=== PATIENT | male | born 1970 | race Caucasian/White ===

== ENCOUNTER 2019-03-03 17:54 | Inpatient (IN) ==
[2019-03-03 18:42] LABS: BASO# 0.11 X1000 (0.0-0.2); EOS# 0.21 X1000 (0.0-0.7); EOS% 3.8 % (0.0-10.0); HEMATOCRIT 46.4 % (42.0-52.0); HEMOGLOBIN 15.8 g/dL (14.0-18.0); LYMPH% 34.7 % (20.5-51.1); MCH 31.2 PG (27-31); MCHC 34.1 g/dL (33-37); MCV 91.7 FL (81-99); MONO# 0.65 X1000 (0.11-0.59); MONO% 11.9 % (1.7-9.3); MPV 10.8 FL (7.4-10.4); NEUT# 2.61 X1000 (1.4-6.5); NEUT% 47.6 % (42.2-75.2); PLT 270 X1000 (130-400); RBC 5.06 XMIL (4.7-6.1); RDW 12.7 % (11.5-14.5); WBC 5.48 X1000 (4.8-10.8)
--- NOTE | 2019-03-03 18:51 | Diag Imaging Result Doc PS360 ---
EXAM: CHEST-PORTABLE 03/03/2019 HISTORY: stroke like symptoms TECHNIQUE: AP portable at 1839 COMMENT: There are calcified granulomatous nodes in the left hilum. There is no evidence of acute cardiac or pulmonary disease. The inspiration is much better than on 04/30/2015. IMPRESSION: No evidence of acute disease. Electronically signed by Yinka Rivera 03/03/2019 6:49 PM
--- NOTE | 2019-03-03 18:56 | Diag Imaging Result Doc PS360 ---
EXAM: CT HEAD W/O CONTRAST 03/03/2019 HISTORY: stroke like symptoms TECHNIQUE: This exam was performed using automated exposure control, adjustment of mA or kV according to patient size, and/or use of iterative reconstruction technique. COMMENT: There is no evidence of mass effect, bleed, or abnormal extra-axial fluid collection. Compared to 04/30/2015 there has been no significant change in the appearance of the brain. The calvarium is intact. There is a mucous retention cyst in the right maxillary sinus. There is no evidence of acute paranasal sinus disease. IMPRESSION: No evidence of acute disease. Electronically signed by Yinka Rivera 03/03/2019 6:54 PM
[2019-03-03 19:15] LABS: INR 0.9; PROTIME 12.9 Seconds (11.0-16.0); PTT 25.8 Seconds (22.3-41.8)
[2019-03-03 19:16] LABS: AGAP 12; ALBUMIN 4.9 g/dL (3.5-5.0); ALKALINE PHOSPHATASE 83 U/L (32-122); BUN 19 mg/dL (8-22); CALCIUM 9.3 mg/dL (8.8-10.2); CHLORIDE 101 mmol/L (98-107); COSMO 284; CREATININE 0.9 mg/dL (0.7-1.2); ESTIMATED GFR > 60; GLUCOSE 101 mg/dL (70-104); GOT 19 U/L (10-34); GPT 33 U/L (10-44); SODIUM 141 mmol/L (136-145); TCO2 28 mmol/L (25-35); TOTAL BILIRUBIN 0.47 mg/dL (0.20-1.00); TOTAL PROTEIN 7.4 g/dL (6.3-8.3)
[2019-03-03] MEDS ORDERED: ASPIRIN PO ONE (19:19)
[2019-03-03 19:52] LABS: URINE SOURCE CLEAN CATCH
[2019-03-03 19:56] LABS: BILIRUBIN URINE NEGATIVE (NEGATIVE); BLOOD URINE NEGATIVE (NEGATIVE); COLOR YELLOW; GLUCOSE URINE NEGATIVE (NEGATIVE); KETONE URINE NEGATIVE (NEGATIVE); LEUKOCYTES URINE SMALL (NEGATIVE); NITRITE URINE NEGATIVE (NEGATIVE); PH URINE 5.5; PROTEIN URINE NEGATIVE (NEGATIVE); TURBIDITY URINE CLEAR (CLEAR); UROBILINOGEN URINE NORMAL (NORMAL)
[2019-03-03 19:58] LABS: URINE WBC <10 /HPF (<10)
[2019-03-03 19:59] LABS: UR EPITHELIAL CELLS <10 /HPF (<10); URINE BACTERIA NEGATIVE /HPF; URINE RBC <10 /HPF (<10)
--- NOTE | 2019-03-03 20:44 | PROVIDER DOCUMENTATION ---
This chart was entered by Shawna Hoskins Scribe, acting as scribe for Zunilda Fernandez MD. HPI-Neurological Disorder - General Chief Complaint: Numbness Stated Complaint: R-SIDE NUMBNESS CANT FOCUS W/HAND-LEG Time Seen by Provider: 03/03/19 18:25 Source: patient Allergies/Adverse Reactions: Patient Allergies Allergy/AdvReac Type Severity Reaction Status Date / Time No Known Allergies Allergy Verified 04/30/15 19:38 Home Medications: Home Medication List Medication Instructions Recorded Confirmed Last Taken Type Allopurinol [Zyloprim] 300 mg PO DAILY 08/31/13 04/30/15 04/30/15 09:00 History Aspirin 81 mg PO DAILY 08/31/13 04/30/15 04/30/15 09:00 History Lisinopril/Hydrochlorothiazide 1 each PO QAM 08/31/13 04/30/15 04/30/15 09:00 History [Lisinopril-Hctz 20-12.5 mg Tab] Metformin [Glucophage] 500 mg PO DAILY 08/31/13 04/30/15 04/30/15 09:00 History Multivits-Minerals/FA/Lycopene 1 each PO DAILY 08/31/13 04/30/15 04/30/15 09:00 History [One Daily For Men Tablet] [place]-3 Fatty Acids/Fish Oil [Fish 1 each PO DAILY 08/31/13 04/30/15 04/30/15 09:00 History Oil 1,000 mg Softgel] Omeprazole [Prilosec] 40 mg PO DAILY@0700 08/31/13 04/30/15 04/30/15 09:00 History Ibuprofen [Motrin] 800 mg PO Q8H PRN PRN #20 tablet 04/30/15 Unknown Rx Labetalol HCl 200 mg PO DAILY 04/30/15 04/30/15 04/30/15 09:00 History Ondansetron HCl [Zofran] 1 - 2 tab PO Q6H PRN PRN #10 tablet 04/30/15 Unknown Rx - History of Present Illness-Neuro Nature of Presenting Problem: pt is a 48 yr old male presenting with complaint of right side numbness, tingling and weakness, pt also reports slurred speech, confusion and difficulty forming words. pt reports onset 1600 while working, resolved approx 1 hr later, pt does admit numbness remains in distal finger tips. pt reports hx of similar 1 week ago but affected left side and resolved approx 1.5hr after onset. pt denies any chest pain or shortness of breath, admits throbbing occipital headache Headache Location: reports: occipital Severity: reports: severe Onset/Duration: reports: abrupt (1629) Timing: reports: still present Context: reports: impaired speech, facial droop, other (right side weakness/numbness/tingling) Approximate time patient was last seen normal?: 16:30 Character of Altered Mental Status: reports: disoriented, confused Any recent trauma/injury?: reports: none Character of Deficits: reports: new weakness, altered sensation, impaired speech New weakness or altered sensation location:: reports: RUE, RLE, right facial Cognitive Baseline: alert, oriented x3 Gait Baseline: walks without assistance Associated Symptoms: reports: dizziness, confusion, fatigue, nausea, numbness in legs/feet, slurred speech, tingling in legs/feet, weakness Similar Symptoms Previously?: Yes (similar episode 1 week prior) Recently seen or treated by another doctor?: No Review of Systems - Adult - REVIEW OF SYSTEMS - ADULT Constitutional: reports: fatique. denies: chills, fever Eyes: denies: blurred vision, double vision Ears, Nose, Mouth & Throat: reports: no symptoms reported Cardiovascular: denies: chest pain, palpitations, syncope Respiratory: denies: cough, shortness of breath Gastrointestinal: reports: nausea. denies: abdominal pain, vomiting Genitourinary: reports: no symptoms reported Musculoskeletal: reports: muscle weakness. denies: muscle aches Integumentary: reports: no symptoms reported Neurological: reports: dizziness/vertigo, headache/migraines, numbness, slurred speech. denies: seizure, syncope Psychiatric: reports: no symptoms reported Endocrine: reports: no symptoms reported Hematologic/Lymphatic: reports: no symptoms reported Allergic/Immunologic: reports: no symptoms reported All Other Systems: Reviewed and Negative Past History - Adult - PAST MEDICAL HISTORY-ADULT Review of Records: reports: Old Records Reviewed, Nursing Assessment Review, Medications Reviewed, Social history reviewed & non-contributory. Major Childhood Illnesses: reports: denies history Cardiovascular: reports: HTN, hyperlipidemia Respiratory: reports: denies history Gastrointestinal: reports: denies history Obstetrical/Gynecological: reports: denies history Genitourinary: reports: kidney stones Musculoskeletal: reports: other (Gout ) Neurological: reports: denies history Endocrine/Immune: reports: Diabetes Other Conditions: reports: denies history - PRIOR SURGERIES/PROCEDURES Surgical/Procedure History: reports: other (lithotripsy) - IMMUNIZATION STATUS Childhood Immunizations: See Nurse Assessment Flu Vaccine: See Nurse Assessment - FAMILY HISTORY Family History: reviewed, not pertinent - SOCIAL HISTORY Smoking: denies Substance Use: denies Living Situation: family Physical Exam- Neurological - Physical Exam-Neuro Initial Vital Signs Reviewed: Yes General Appearance: appears well, alert, no apparent distress Eye Exam: bilateral eye: normal inspection, PERRL HENMT: normocephalic/atraumatic, moist mucous membranes, normal ENT inspection Head Injury: no evidence of injury Neck: non-tender, full range of motion, supple, normal inspection Respiratory: chest non-tender, lungs clear, normal breath sounds Cardiovascular: normal peripheral pulses, regular rate, rhythm, no edema Abdominal Exam: normal bowel sounds, non tender, soft Lymphatic: no adenopathy Peripheral Pulses: radial (R): 2+, radial (L): 2+ Extremity: normal range of motion, non-tender, 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, 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 Exam: normal hearing, normal speech, PERRL Coordination/Gait: normal finger to nose, normal gait Motor/Sensory: no motor deficit, no sensory deficit, no pronator drift Neurologic: grossly normal, no motor/sensory deficits Integumentary: normal color, normal turgor, warm/dry Psych/Mental Status: normal mood/affect - Glascow Coma Scale Best Eye Response: (4) open spontaneously Best Verbal Response: (5) oriented Best Motor Response: (6) obeys commands Total Glascow Score: 15 Progress - PLAN OF CARE/RESULTS Progress/Plan/Lab Results: Vital Signs - 8 hr 03/03/19 17:58 03/03/19 19:02 03/03/19 19:05 Temperature 97.7 F Pulse Rate 77 85 Respiratory Rate 18 24 Blood Pressure 148/103 131/95 O2 Sat by Pulse Oximetry 97 95 95 03/03/19 19:39 03/03/19 20:00 Temperature Pulse Rate 79 74 Respiratory Rate 18 15 Blood Pressure 149/109 O2 Sat by Pulse Oximetry 98 96 Laboratory Results - last 24 hr 0503/03/19 03/03/19 18:24 18:24 18:24 WBC 5.48 RBC 5.06 Hgb 15.8 Hct 46.4 MCV 91.7 MCH 31.2 H MCHC 34.1 RDW Std Deviation 12.7 Plt Count 270 MPV 10.8 H Immature Gran % (Auto) 0.0 Neut % (Auto) 47.6 Lymph % (Auto) 34.7 [place] % (Auto) 11.9 H Eos % (Auto) 3.8 Baso % (Auto) 2.0 H Immature Gran # (Auto) 0.00 Neut # (Auto) 2.61 Lymph # (Auto) 1.90 [place] # (Auto) 0.65 H Eos # (Auto) 0.21 Baso # (Auto) 0.11 PT 12.9 INR 0.90 PTT (Actin FS) 25.8 Sodium 141 Potassium 4.0 Chloride 101 Carbon Dioxide 28 Anion Gap 12 BUN 19 Creatinine 0.9 Estimated GFR/1.73 m2 > 60 BUN/Creatinine Ratio 21 Glucose 101 POC Glucose Calculated Osmolality 284 Calcium 9.3 Total Bilirubin 0.47 AST 19 ALT 33 Alkaline Phosphatase 83 Troponin T Total Protein 7.4 Albumin 4.9 Globulin 2.5 Albumin/Globulin Ratio 2.0 Urine Source Urine Color Urine Turbidity Urine pH Ur Specific [place] Urine Protein Ur Glucose (Stick) Ur Ketones (Stick) Urine Blood Urine Nitrite Urine Bilirubin Urobilinogen Dipstick Urine Leukocytes Urine WBC (Auto) Urine RBC (Auto) U Epithel Cells (Auto) Urine Bacteria (Auto) 03/03/19 03/03/19 03/03/19 18:24 19:06 19:30 WBC RBC Hgb Hct MCV MCH MCHC RDW Std Deviation Plt Count MPV Immature Gran % (Auto) Neut % (Auto) Lymph % (Auto) [place] % (Auto) Eos % (Auto) Baso % (Auto) Immature Gran # (Auto) Neut # (Auto) Lymph # (Auto) [place] # (Auto) Eos # (Auto) Baso # (Auto) PT INR PTT (Actin FS) Sodium Potassium Chloride Carbon Dioxide Anion Gap BUN Creatinine Estimated GFR/1.73 m2 BUN/Creatinine Ratio Glucose POC Glucose 105 H Calculated Osmolality Calcium Total Bilirubin AST ALT Alkaline Phosphatase Troponin T < 0.010 Total Protein Albumin Globulin Albumin/Globulin Ratio Urine Source CLEAN CATCH Urine Color YELLOW Urine Turbidity CLEAR Urine pH 5.5 Ur Specific [place] 1.010 Urine Protein NEGATIVE Ur Glucose (Stick) NEGATIVE Ur Ketones (Stick) NEGATIVE Urine Blood NEGATIVE Urine Nitrite NEGATIVE Urine Bilirubin NEGATIVE Urobilinogen Dipstick NORMAL Urine Leukocytes SMALL A Urine WBC (Auto) <10 Urine RBC (Auto) <10 U Epithel Cells (Auto) <10 Urine Bacteria (Auto) NEGATIVE Orders Category Date Time Status Cardiac Monitoring DIRECTED Care 03/03/19 18:11 Active Finger Stick Blood Sugar (ED) DIRECTED Care 03/03/19 18:11 Active Misc. NRSG Communication Order DIRECTED Care 03/03/19 18:11 Active Saline Loc NOW Care 03/03/19 18:11 Active CHEST-PORTABLE [RAD] Stat Exams 03/03/19 18:[address] HEAD W/O CONTRAST [CT] Stat Exams 03/03/19 18:11 Completed CBC WITH ELECTRONIC DIFF [HEME] Stat Lab 03/03/19 18:24 Completed COMPREHENSIVE METABOLIC PANEL [CHEM] Stat Lab 03/03/19 18:24 Completed PROTIME WITH INR [COAG] Stat Lab 03/03/19 18:24 Completed PTT [COAG] Stat Lab 03/03/19 18:24 Completed TROPONIN T Stat Lab 03/03/19 18:24 Completed URINALYSIS W/POSS RFLX CULT [URINALYSIS] Stat Lab 03/03/19 19:30 Completed URINE CULTURE [RM] Routine Lab 03/03/19 20:01 Received Aspirin Med 03/03/19 19:19 Discontinued 325 mg PO NOW ONE EKG [EKG] Stat Ther 03/03/19 18:11 Ordered Result Diagrams: 03/03/19 18:24 03/03/19 18:24 - EKG 1 Time of EKG reading by physician:: 19:17 EKG Read and Signed by:: Zunilda Fernandez EKG Interpretation (*Must complete 3 of following elements*): Abnormal Rate: 74 Rhythm: nsr [place]: normal QRS: LVH (may be normal variant) [place] Interval: normal ST Wave: normal - CONSULTS/PCP/HOSPITALIST Notification #1 *Consult/PCP/Hospitalist*: Dr. Payne Time Discussed: 20:43 (CVA r/o) Consult Disposition: Admit Departure - Departure Date of Disposition Decision: 03/03/19 Time of Disposition Decision: 20:43 DIAGNOSIS: CVA (cerebral vascular accident) Disposition: ADMITTED INPATIENT 09 Certified Medical Emergency: Emergent Condition: Stable Referrals and Follow-Ups: Venessa Ruffin CRNP [Primary Care Provider] - Call for Appoint. 1-2days - Critical Care Note This patient required my direct & personal management of CC.: No Attestation - Physician/ DEVEN Attestation The physician spent face to face time with patient:: Yes Advanced Practice Provider documentation review:: Supervising physician onsite and consulted in the evaluation and care of this patient. The physician did have a face to face encounter with the patient. - NIH Stroke Scale NIH Type: Initial Evaluation Level of Consciousness: 0-Alert LOC Questions (ask month and age): 0-Answers Both Correctly LOC Commands (ask to open & close eyes;make a fist, let go): 0-Obeys Both Correctly Best Gaze (horizontal eye movement): 0-Normal Visual (use finger movement, counting or visual threat): 0-No Visual Loss Facial Palsy (show teeth or raise eyebrows & close eyes tght: 0-Symmetrical Movement Motor Function-left arm: 0-Normal Motor Function-right arm: 0-Normal Motor Function-left le-Normal Motor Function-right le-Normal Limb Ataxia(moxemb-ouaw-rbtcoe, or heel to lopez): 0-No Ataxia Sensory(pin prick to face,arms,trunk,legs-compare side/side): 0-No Ataxia Best Language(name item/read sentence.Ex-Down to Earth): 0-No Aphasia Dysarthria(Pt read words or say words Ex.Mama,Tip-Top,Thanks: 0-Normal Articulation Extinction and Inattention: 0-Normal Modified [place] Score Criteria: 0-no symptoms This chart was documented by the indicated scribe, (Shawna Hoskins, Scribe) and accurately reflects the services I performed and decisions made by me, Zunilda Fernandez MD, as attested by the provider's signature.
[2019-03-03] MEDS ORDERED: TYLENOL PO PRN (21:03)
[2019-03-03] MEDS ORDERED: ZOFRAN IV PRN (21:03)
[2019-03-03] MEDS ORDERED: NS 1,000 ML IV SCH (21:15)
[2019-03-03] MEDS ORDERED: LOVENOX SUBQ SCH (21:15)
[2019-03-03 22:47] LABS: HEMOGLOBIN A1C 5.5 % (4.8-6.0)
--- NOTE | 2019-03-03 23:17 | HISTORY AND PHYSICAL ---
CHIEF COMPLAINT: Stroke-like symptoms. HISTORY OF PRESENT ILLNESS: Mr. Velez is a 48-year-old male. He is lying in the ER stretcher. He is alert and oriented times 3. Denies any deficits at this time. They have all resolved on arrival. Mr. Velez was at work. 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 He felt as if his face was numb and tingling and he had a 9/10 occipital headache that was pounding which started after the numbness had onset. He stated that he had a similar episode a week ago that lasted about an hour and a half but he did not seek medical attention. He also stated that he has had migraines in the past with treatment from someone in [place]. However, he no longer takes migraine treatment. He has other medical history that includes diabetes mellitus type 2. However, he no longer takes metformin. Apparently, his hemoglobin A1c was within limits and his doctor had taken him off of this. Also has hypertension, hyperlipidemia and gout. CT of his head was normal. He will be admitted for further evaluation and treatment. PAST MEDICAL HISTORY: See HPI. PREVIOUS SURGICAL HISTORY: Lymph node biopsy. Otherwise denies. FAMILY HISTORY: Mother had hypertension and migraines. Father had coronary artery disease, from myocardial infarction at age 44. SOCIAL HISTORY: Lives with his . 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 He does drink alcohol on Thursday night, usually 6-8 mixed drinks. Denies tobacco or illicit drugs. ALLERGIES: No known drug allergies. HOME MEDICATIONS: Lisinopril/hydrochlorothiazide 20/12.5 one p.o. daily, Lasix 20 mg p.r.n., aspirin 81 mg p.o. daily, allopurinol 300 mg p.o. daily, omeprazole 20 mg p.o. daily, multivitamin daily, fish oil daily. REVIEW OF SYSTEMS: Fourteen point review of systems conducted with the patient. He had complaint of slurring of speech, feeling as if his vision was in a tunnel during the episode. Also has intermittent swelling of his feet. Other pertinent positives listed above in the HPI. All other systems reviewed and found to be negative. PHYSICAL EXAMINATION: VITAL SIGNS: Temperature 97.7, pulse 73, respirations 16, blood pressure 122/96, oxygen saturation 95% on room air. GENERAL: Pleasant 48-year-old male, answers all questions appropriately, is alert and oriented times 3. Family at bedside very attentive. HEENT: Head is atraumatic, normocephalic. Pupils equal, round, reactive to light. Extraocular eye movement is intact. Sclerae are anicteric. Conjunctiva is pink. Oral mucosa is moist. NECK: Supple. No JVD. No thyromegaly. Trachea is midline. No cervical lymphadenopathy. CARDIAC: S1, S2 appreciated. No murmurs, gallops, rubs. LUNGS: Clear to auscultation bilaterally. No rhonchi, wheeze, rales. Symmetric rise and fall with respirations. ABDOMEN: Soft, nondistended, nontender. Bowel sounds present all 4 quadrants, normoactive. No pulsatile mass. No organomegaly. EXTREMITIES: No clubbing, cyanosis, or edema. Two-plus pedal pulses bilaterally. GENITOURINARY: No bladder distention. Patient voids. Otherwise deferred. NEUROLOGICAL: Alert and oriented times 3. Cranial nerves 2 through 12 grossly intact. Normal gait. No focal or motor deficits appreciated. DIAGNOSTIC DATA: CT of the head: No acute intracranial process. Chest x-ray: No evidence of acute disease. LABORATORY DATA: CBC within normal limits. Coagulation studies within normal limits. Chemistry panel within normal limits other than a glucose of 105. Urine unremarkable. ASSESSMENT AND PLAN: 1. Complex migraine with differentials of transient ischemic attack versus cerebrovascular accident. We will order an MRI with and without contrast, carotid ultrasound and echocardiogram in a.m. Patient no longer has complaint. We will give Tylenol 650 as needed for pain. Continue aspirin 81 mg p.o. daily. 2. Hypertension. We will not treat tonight. We will continue patient's Prinzide tomorrow. We will allow for permissive hypertension overnight. 3. Gout. We will continue allopurinol. 4. Hyperlipidemia. Patient does not appear to be on a statin. We will start atorvastatin 40. Check a direct lipid profile. Further recommendations per patient's clinical course. Dictated by KAVON Dunn for Rick Payne MD cc: KAVON Dunn MD
--- NOTE | 2019-03-04 03:35 | HISTORY AND PHYSICAL ---
ADDENDUM: Patient seen and examined by myself. Full note dictated and discussed with nurse practitioner. Patient presented to the ER complaining of numbness/tingling on his right side arm and leg as well as some speech difficulty. Interestingly, patient notes that he had some similar symptoms last week, but it was on the left side. He initially did not recall having history of migraines, but then remembers being on medications for migraines in the past. We will admit the patient to the hospital. We will workup for TIA, but this certainly sounds more of a complicated migraine history. We will continue to follow. Further orders as needed. cc: Rick Payne MD
[2019-03-04] MEDS: LIPITOR PO SCH ×2 (03:43→11:02)
[2019-03-04] MEDS ORDERED: PRILOSEC PO SCH (07:00)
--- NOTE | 2019-03-04 07:15 | EKG Report ---
Test Performed on : 03/04/2019 06:51:55 AM Test Reason : chest pain Blood Pressure : / mmHG Vent. Rate : 066 BPM Atrial Rate : 066 BPM P-R Int : 226 ms QRS Dur : 086 ms QT Int : 400 ms P-R-T Axes : 021 009 028 degrees QTc Int : 419 ms Sinus rhythm. with 1st degree AV block. Otherwise normal ECG When compared with ECG of 03-MAR-2019 19:17, (Unconfirmed) No significant change was found Confirmed by Cameron HODGE, Bryson Sebastian ([id number]) on 03/08/2019 12:41:06 PM
--- NOTE | 2019-03-04 07:17 | EKG Report ---
Test Performed on : 03/03/2019 7:17:59 PM Test Reason : Stroke like symptoms Blood Pressure : / mmHG Vent. Rate : 074 BPM Atrial Rate : 074 BPM P-R Int : 204 ms QRS Dur : 088 ms QT Int : 380 ms P-R-T Axes : 016 001 013 degrees QTc Int : 421 ms Normal sinus rhythm. Minimal voltage criteria for LVH, may be normal variant Borderline ECG When compared with ECG of 24-SEP-2017 17:19, No significant change was found Unconfirmed Result
[2019-03-04 07:53] LABS: BASO# 0.09 X1000 (0.0-0.2); BASO% 1.7 % (0.0-0.8); EOS# 0.23 X1000 (0.0-0.7); EOS% 4.4 % (0.0-10.0); HEMATOCRIT 46.3 % (42.0-52.0); HEMOGLOBIN 15.5 g/dL (14.0-18.0); LYMPH# 1.77 X1000 (1.2-3.4); LYMPH% 33.5 % (20.5-51.1); MCHC 33.5 g/dL (33-37); MCV 92.6 FL (81-99); MONO# 0.74 X1000 (0.11-0.59); MPV 10.7 FL (7.4-10.4); NEUT# 2.45 X1000 (1.4-6.5); NEUT% 46.4 % (42.2-75.2); PLT 243 X1000 (130-400); RDW 12.9 % (11.5-14.5); WBC 5.28 X1000 (4.8-10.8)
[2019-03-04 08:09] LABS: AGAP 10; BUN 15 mg/dL (8-22); CHLORIDE 103 mmol/L (98-107); COSMO 280; CREATININE 0.8 mg/dL (0.7-1.2); ESTIMATED GFR > 60; GLUCOSE 102 mg/dL (70-104); POTASSIUM 3.9 mmol/L (3.5-5.1); SODIUM 140 mmol/L (136-145); TCO2 27 mmol/L (25-35)
[2019-03-04 08:11] LABS: HEMOGLOBIN A1C 5.4 % (4.8-6.0)
[2019-03-04] MEDS ORDERED: ASPIRIN PO SCH (09:00)
[2019-03-04] MEDS ORDERED: ZYLOPRIM PO SCH (09:00)
[2019-03-04] MEDS ORDERED: PRINZIDE 20/12.5MG PO SCH (09:00)
--- NOTE | 2019-03-04 12:06 | Diag Imaging Result Doc PS360 ---
EXAM: MRI BRAIN W/WO CONTRAST 03/04/2019 HISTORY: TIA vs complicated Migraine vs MS TECHNIQUE: T1 sagittal, axial and post gadolinium-enhanced axial with coronal reformation, T2, FLAIR, DWI axial and coronal gradient echo. COMMENT: There is no evidence of mass effect, bleed, or abnormal extra-axial fluid collection. There is no evidence of restricted diffusion. There is no evidence of abnormal gadolinium enhancement. IMPRESSION: Normal MRI of the brain. Electronically signed by Yinka Rivera 03/04/2019 12:04 PM
--- NOTE | 2019-03-04 14:19 | ECHO REPORT ---
ORDER DATE: 03/04/2019 INDICATION: Transient ischemic attack. FINDINGS: 1. Right atrium appears normal in size at 2.7 cm. 2. Trace tricuspid regurgitation. RV systolic pressure 21. 3. Normal RV size and systolic function. 4. No significant pulmonic insufficiency. 5. Normal left atrial size with a dimension of 3.4 cm and a volume index of 22. 6. No mitral valve prolapse. Trace mitral regurgitation. No evidence of mitral stenosis. 7. Normal LV size, end-diastolic dimension of 4.8. Normal wall thicknesses with a posterior and interventricular septal wall thickness of 0.9 and 0.7 cm respectively. Normal LV systolic function. Estimated EF is 60% with normal wall motion. 8. Aortic valve opens well. There is no evidence of stenosis or insufficiency. 9. Aorta appears normal in visualized segments. 10. No pericardial effusion seen. cc: MD Jon Cramer CRNP
--- NOTE | 2019-03-04 14:55 | PROGRESS NOTE ---
DATE: 03/04/2019 SUBJECTIVE: This morning Mr. Velez refers to be doing a lot better. He thinks the strength on his right side has improved. He did complain of some mild headaches. OBJECTIVE: Vital signs: Blood pressure is 143/100, pulse of 79, respirations 16, and temperature 99.4 degrees. The patient was saturating 99% on room air. General: Mr. Velez is a 40-year-old gentleman. He was in bed in no distress. Mucosa is pink and moist. Anicteric. Acyanotic. Neck: Supple. There was no JVD. Chest: Good air entry bilaterally. No crepitations. No rhonchi. Cardiovascular: Regular rate and rhythm. No murmurs, no rubs, no gallops. Abdomen: Soft, nontender. Bowel sounds present. Extremities: No pedal edema. 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 There is no focal neurological deficit. LABORATORY DATA: Data has been reviewed. CBC is completely normal. Chemistry is also completely normal. The patient's A1c is 5.4. Triglyceride was 223. MRI of the brain showed no evidence of mass effect. Impression: Normal MRI of the brain. Urine culture was also negative. ASSESSMENT: 1. Recurrent neurological symptoms including upper extremity deficit. According to Mr. Velez, the left side got numb and weak about a week ago and that got better. Yesterday, he got admitted because of right-sided weakness and numbness. This has also gotten better. An MRI of the brain is completely negative. I am unsure if the patient did have a TIA or if it is something else. We will get neurology to evaluate him accordingly. 2. Hypertension is currently controlled. 3. History of gout, stable. 4. Questionable migraine headaches will be pending neuro evaluation. In general, Mr. Velez is clinically and neurologically seems to be intact today. His MRI is also completely negative. However, it is kind of worrisome that this is about the second time he is having these neurological complaints. I would wait for neurology to evaluate him today and then go from there. cc: Clint Paul MD [facility] CENTERToñito
[2019-03-04 16:11] VITALS: BP 123/82
--- NOTE | 2019-03-04 18:36 | Carotid Study ---
DATE: 03/04/2019 PROCEDURE: Carotid duplex imaging. REFERRING PHYSICIAN: Zunilda Fernandez MD. INTERPRETING PHYSICIAN: Abrahan Hoover MD. TECH: [employer]. INDICATIONS: TIA. OBSERVED DATA RIGHT LEFT Brachial Blood Pressure Carotid Pulse Bruits: Carotid/Sub DIAGRAM OF ULTRASOUND IMAGING R L RIGHT INT EXT INT EXT LEFT [place] (cm/s) [place] (cm/s) Subclavian 42/0 Subclavian 45/0 CCA Proximal 83/19 CCA Proximal 70/18 CCA Distal 65/15 CCA Distal 64/20 Bulb 56/16 Bulb 48/16 ICA Proximal 36/19 ICA Proximal 36/14 ICA Mid 45/20 ICA Mid 57/28 ICA Distal 43/18 ICA Distal 59/31 ECA 65/13 ECA 76/14 Vertebral 40/17 Vertebral 26/9 ICA/CCA Ratio 0.7 ICA/CCA Ratio 0.8 % Stenosis 0-39 % Stenosis 0-39 FINDINGS: There is no significant plaque in either carotid system. There is antegrade vertebral flow bilaterally. INTERPRETATION: Normal carotid imaging study. cc: MD Jon Mike CRNP
--- NOTE | 2019-03-05 20:45 | DISCHARGE SUMMARY ---
ADMISSION DATE: 03/03/2019 DISCHARGE DATE: 03/04/2019 DISPOSITION: Home. FOLLOWUP: Will be with: 1. KAVON Pittman. 2. Moriah Barnes III, MD. CONSULTATION: During this admission, Neurology was consulted. However, patient was not able to be seen. IMAGING STUDIES OF SIGNIFICANCE: 1. A chest x-ray showed no evidence of acute disease. 2. A CT scan of the head showed no evidence of acute disease. 3. An MRI of the brain showed normal MRI of the brain. ADMISSION DIAGNOSES: 1. Complex migraine with differential of transient ischemic attack. 2. Hypertension. 3. Gout. 4. Dyslipidemia. DISCHARGE DIAGNOSES: 1. Recurrent neurological symptoms including upper extremity deficits. CT scan and an MRI of the brain were unremarkable. The patient will follow up accordingly with Neurology. 2. History of migraine, questionable complex migraine. 3. Hypertension. 4. Dyslipidemia. 5. Gout. DISCHARGE MEDICATIONS: 1. [place]-3 fatty acids. 2. Multivitamin. 3. Omeprazole 40 mg p.o. daily. 4. Aspirin 81 mg daily. 5. Allopurinol 300 p.o. daily. 6. Lisinopril with hydrochlorothiazide 1 tablet daily. 7. Labetalol 200 mg daily. 8. Atorvastatin 40 mg p.o. daily. PRESENTING COMPLAINT: Stroke-like symptoms. HISTORY OF PRESENTING COMPLAINT: Mr. Velez is a 48-year-old, male, who presented to the emergency department because of right upper extremity numbness associated with weakness. He said about a week ago he had a similar presentation, but that time it was on the left side, that episode subsided on its own. This time around, he was evaluated and admitted. However, his neurological deficit has completely resolved. Mr. Velez also refers that he has a history of migraine and has been treated in the past in [place]. He was subsequently admitted for further medical care. HOSPITAL COURSE: Mr. Velez was admitted to the medical floor with neurological observation. He did actually improve from neurological standpoint. This morning when I saw him, he had no deficit, no motor deficit, no sensory deficit. He did mention about some mild posterior headache. MRI of the brain was completely normal. His labs were all reviewed. His triglyceride was minimally elevated, but otherwise unremarkable. His total cholesterol was about 193. Mr. Velez has been started on Crestor and he will continue with his home medications. Neurology was consulted today. However, I understand Dr. Barnes was able to review the imaging studies and has recommended that the patient follow up with him on outpatient base. I have reviewed all his lab work this morning. They are all within normal ranges including CBC and chemistry. Please refer to the details of my progress note today. Mr. Velez is clinically stable. He is currently asymptomatic. I think he is stable for discharge. He is going to follow up with Dr. Barnes in about a week's time and he is also advised to follow up with his primary care doctor. All the discharge instructions have been discussed with him. At the time of this encounter, the and another female family member were all at the bedside at the time of the encounter. They all voiced understanding. TIME SPENT: For discharge is 37 minutes. cc: MD Venessa Borges CRNP Eston G. Norwood III, MD
== END 2019-03-04 18:32 | disposition home or self-care (01) | DRG 103 ==
LOC: ED 17:54 → SUATTDRO 22:20 → 3N 22:20
PROVIDERS: ATTEND Internal Medicine
CPT/HCPCS: 70450; 70553; 71010; 71045; 80048; 80053; 80061; 81001; 82948; 83036; 83721; 84443; 84484; 85025; 85610; 85730; 87088; 93005; 93010; 93306; 93880; 96360; 96372; 99285; A9270; A9579; C8929; J1650; J7030; Q9957; XXXXX